=== PATIENT | female | born 1950 | race Hispanic/Latino ===

== ENCOUNTER 2017-05-18 15:02 | Outpatient (CLI) | payer MEDICARE, OTHER ==
--- NOTE | 2017-05-18 16:44 | RAD ---
RIGHT WRIST THREE VIEWS: History: Question injury of wrist three weeks ago. FINDINGS: Scaphoid waste is intact. Osteophytosis is present throughout the wrist. There is cortical remodeling and partial collapse of the lunate. Subcortical cystic changes involve the lunate, trapezium and tri quetral. No acute fracture or dislocation are visible. Osteoarthritic changes are most pronounced at the first metacarpal phalangeal joint. Osseous structures are demineralized. IMPRESSION: 1. Osteoarthritis and other chronic type findings of the wrist as detailed above. No acute traumatic injury is demonstrated. 2. Osteoporosis. POS: [facility]
== END 2017-05-18 15:03 | disposition home or self-care (01) ==
LOC: SCSRAD 15:02
PROVIDERS: ATTEND Family Medicine
DX: M25.531 Pain in right wrist (principal); M19.031 Primary osteoarthritis, right wrist; M81.0 Age-related osteoporosis without current pathological fracture

== ENCOUNTER 2017-07-14 10:54 | Outpatient (CLI) | payer MEDICARE, OTHER | END 2017-07-14 10:55 | disposition home or self-care (01) | LOC: BICULT 10:54 | PROVIDERS: ATTEND Nurse Practitioner Family | DX: R10.11 Right upper quadrant pain (principal) | CPT/HCPCS: 76705 ==

== ENCOUNTER 2018-03-03 08:44 | Emergency (ER) | payer MEDICARE, OTHER ==
[2018-03-03] MEDS ORDERED: Iopamidol 370 76% 100 ML VIAL ONE (09:00)
[2018-03-03] MEDS ORDERED: Ondansetron PF 4 MG/2 ML Vial ONE (09:23)
[2018-03-03] MEDS ORDERED: Morphine 4 MG/ML VIAL ONE (09:23)
[2018-03-03 09:25] LABS: #Basophils 0.1 thou/uL (0.0-0.2); #Lymphocytes 1.4 thou/uL (1.20-3.40); #Monocytes 0.9 thou/uL (0.11-0.59); %Basophils 0.6 % (0.0-1.0); %Eosinophils 0.1 % (0.0-10.0); %Lymphocytes 13.8 % (21.0-51.0); %Monocytes 8.4 % (0.0-10.0); %Neutrophils 77.1 % (42.0-75.0); Hemoglobin 11.3 g/dL (12.0-16.0); Mean Corpuscular HGB CONC 32.8 g/dL (32.0-36.0); Mean Corpuscular Hemoglobin 27.9 pg (27.0-31.0); Mean Corpuscular Volume 85.3 fL (78.0-98.0); Mean Platelet Volume 7.7 fL (7.4-10.4); Platelet Count 262 thou/uL (130-400); RBC Distribution Width 12.3 % (11.5-14.5); Red Blood Cell (RBC) Count 4.04 mill/uL (4.20-5.40); White Blood Cell (WBC) Count 10.4 thou/uL (4.8-10.8)
[2018-03-03 09:44] LABS: ALT (SGPT) 19 U/L (8-55); Albumin 3.9 g/dL (3.4-4.8); Alkaline Phosphatase 63 U/L (40-150); Anion Gap 16 mmol/L (10-20); BUN (Urea Nitrogen) 12 mg/dL (9.8-20.1); Bilirubin, Total 0.7 mg/dL (0.2-1.2); Calc. Creatinine Clearance 0 mL/min (70-130); Calcium 9.4 mg/dL (7.8-10.44); Carbon Dioxide 20 mmol/L (23-31); Chloride 103 mmol/L (98-107); Estimated GFR-MDRD 79; Globulin 4.2 g/dL (2.4-3.5); Glucose 116 mg/dL (80-115); Potassium 4.4 mmol/L (3.5-5.1); Protein, Total 8.1 g/dL (6.0-8.3); Sodium 135 mmol/L (136-145)
[2018-03-03 09:47] LABS: AST (SGOT) 24 U/L (5-34)
[2018-03-03 09:52] LABS: Lipase Less than 4 U/L (8-78)
[2018-03-03 10:03] LABS: Bilirubin Negative (Negative); Blood, Urine Trace (Negative); Clarity Clear (Clear); Glucose, Urine (Dipstick) Negative (Negative); Leukocyte Trace (Negative); Protein, Urine (Dipstick) Negative (Neg-Trace)
[2018-03-03 10:08] LABS: Nitrite Unable to Interpret (Negative); RBC/HPF 0-3 HPF (0-3); Squamous Epithelial 0-3 HPF (0-3); WBC/HPF 0-3 HPF (0-3)
[2018-03-03 10:09] LABS: Bacteria/HPF None Seen HPF (None Seen)
[2018-03-03 10:10] LABS: Hyaline Casts/LPF NONE SEEN LPF (0-3 Hyaline)
--- NOTE | 2018-03-03 11:38 | ULT ---
BILATERAL LOWER EXTREMITY VENOUS ULTRASOUND: History: Bilateral leg pain, low back pain. Technique: Multiplanar grayscale and color doppler images were obtained in a bilateral lower extremit y venous ultrasound. Spectral analysis of the doppler waveforms were performed. FINDINGS: The bilateral common femoral veins, profunda femoral veins, superficial femoral veins, and popliteal veins are normal in appearance without visible thrombus. These vessels demonstrate normal compression , flow, and augmentation. The posterior tibial veins and greater saphenous veins are also patent. IMPRESSION: No evidence of DVT. POS: [facility]
--- NOTE | 2018-03-03 11:48 | CT ---
CT ABDOMEN AND PELVIS WITH CONTRAST: Date: 03/03/18 HISTORY: Abdominal pain. COMPARISON: None. FINDINGS: Mild atelectatic changes lung bases. Heart size mildly enlarged. Diffuse fatty atrophy of the pancreatic head, body, and uncinate process. Liver, gallbladder, and spleen are all unremarkable. Adrenal glands are unremarkable. Hypodensity sup erior pole right kidney has fluid attenuation suggesting a cyst. There is a cyst of the hepatic dome. Mid fullness of the renal pelvises bilaterally without hydronephrosis. No dilated loops of large or small bowel. Urinary bladder is unremarkable. No acute osseous abnormality. IMPRESSION: 1. No acute inflammatory process within the abdomen or pelvis. 2. Extensive fatty atrophy of the pancreas involving the uncinate process, head, and body. This can be a cause of chronic exocrine pancreatic insufficiency. Lab value correlation recommended on an outp atient basis. POS: [facility]
== END 2018-03-03 11:52 | disposition home or self-care (01) ==
LOC: SCSER 08:44
DX: K59.00 Constipation, unspecified (principal); K86.89 Other specified diseases of pancreas; M25.562 Pain in left knee; F32.9 Major depressive disorder, single episode, unspecified; Z79.891 Long term (current) use of opiate analgesic; Z79.899 Other long term (current) drug therapy
CPT/HCPCS: 51701; 74177; 80053; 81003; 81015; 83690; 85025; 93970; 96374; 96375; 99214; A4353; G0463; J2270; J2405

== ENCOUNTER 2018-11-17 10:36 | Outpatient (CLI) | payer MEDICARE, OTHER ==
--- NOTE | 2018-11-17 11:46 | MMO ---
Bilateral MAMMO Bilat Screen [facility]DI. CLINICAL HISTORY: Patient is 68 years old and is seen for screening. The patient has no family history of breast cancer. The patient has no personal history of cancer. VIEWS: The views performed were: bilateral craniocaudal and bilateral mediolateral oblique. FILMS COMPARED: The present examination has been compared to a prior imaging study performed at [facility] on 06/04/2010. This study has been interpreted with the assistance of computer-aided detection. MAMMOGRAM FINDINGS: There are scattered fibroglandular densities. There are vascular calcifications seen in both breasts. There are no suspicious masses, suspicious calcifications, or new areas of architectural distortion. IMPRESSION: THERE IS NO MAMMOGRAPHIC EVIDENCE OF MALIGNANCY. A ROUTINE FOLLOW-UP MAMMOGRAM IN 1 YEAR IS RECOMMENDED. ACR BI-RADS Category 2 - Benign finding MAMMOGRAPHY NOTE: 1. A negative mammogram report should not delay a biopsy if a dominant of clinically suspicious mass is present. 2. Approximately 10% to 15% of breast cancers are not detected by mammography. 3. Adenosis and dense breasts may obscure an underlying neoplasm. Reported by: CAIO PEOPLES MD Electonically Signed: [id number]
== END 2018-11-17 10:37 | disposition home or self-care (01) ==
LOC: SCSMAMMO 10:36
PROVIDERS: ATTEND Family Medicine
DX: Z12.31 Encounter for screening mammogram for malignant neoplasm of breast (principal)
CPT/HCPCS: 77067

== ENCOUNTER 2018-12-29 09:08 | Outpatient (CLI) | payer MEDICARE, OTHER ==
--- NOTE | 2018-12-29 09:48 | BD ---
EXAM: Bone densitometry using DEXA HISTORY: 68 yo female. Screening for postmenopausal osteoporosis FINDINGS: L1--bone mineral density 0.819 g/sq cm; T score -1.6 ; Z score 0.2 L2--bone mineral density 0.811 g/sq cm; T score -2.0 ; Z score 0.0 L3--bone mineral density 0.967 g/sq cm; T score -1.1 ; Z score 1.0 L4--bone mineral density 0.944 g/sq cm; T score -1.1 ; Z score 1.1 Total L1-L4--bone mineral density 0.890 g/sq cm; T score -1.4 ; Z score 0.6 Left femoral neck--bone mineral density0.697; T score -1.4 ; Z score 0.2 Total proximal left femur--bone mineral density 0.855; T score -0.7 ; Z score 0.6 The 10 year fracture risk for a major osteoporotic fracture is 11% and for a hip fracture is 1.3%. IMPRESSION: Osteopenia
== END 2018-12-29 09:09 | disposition home or self-care (01) ==
LOC: BICMAMMO 09:08
PROVIDERS: ATTEND Internal Medicine Rheumatology
DX: M81.0 Age-related osteoporosis without current pathological fracture (principal); M85.89 Other specified disorders of bone density and structure, multiple sites
CPT/HCPCS: 77080